=== PATIENT | male | born 1980 | race African-American/Black ===

== ENCOUNTER 2019-03-19 15:34 | Inpatient (IN) | payer OTHER ==
[2019-03-19 16:03] VITALS: BMI 34.4
--- NOTE | 2019-03-19 17:04 | HP ---
COWS - Scale Resting Pulse: 0= [place] 80 or Below Sweatin=Flushed/Facial Moisture Restless Observation: 1= Difficult to Sit Still Pupil Size: 0= Normal to Room Light Bone or Joint Aches: 2= Severe Diffuse Aches Runny Nose/ Eye Tearin= Nasal Congestion GI Upset > 30mins: 2= Nausea/Diarrhea Tremor Observation: 1= Tremor [place], Not Seen Yawning Observation: 1= 1-2x During Session Anxiety or Irritability: 1=Feels Anxious/Irritable Goose Flesh Skin: 0=Smooth Skin COWS Score: 11 CIWA Score - Admission Criteria OASAS Guidelines: Admission for Medically Managed Detox: Requires at least one of the followin. CIWA greater than 12 2. Seizures within the past 24 hours 3. Delirium tremens within the past 24 hours 4. Hallucinations within the past 24 hours 5. Acute intervention needed for co occurring medical disorder 6. Acute intervention needed for co occurring psychiatric disorder 7. Severe withdrawal that cannot be handled at a lower level of care (continued vomiting, continued diarrhea, abnormal vital signs) requiring intravenous medication and/or fluids 8. Admission ROS [facility] - [facility] Chief Complaint: Withdrawal sx Allergies/Adverse Reactions: Allergies Allergy/AdvReac Type Severity Reaction Status Date / Time Milk Containing Products AdvReac Severe Vomiting Verified 03/19/19 17:05 History of Present Illness: This 38 year old male presents for heroin detox for the first time. He denies overdose, he is also requesting for rehab with residential out patient program Exam Limitations: No Limitations - Ebola screening Have you traveled outside of the country in the last 21 days: No (N) Have you had contact with anyone from an Ebola affected area: No Have you been sick,other than usual withdrawal symptoms: No Do you have a fever: No - Review of Systems Constitutional: Chills, Changes in sleep, Unintentional Wgt. Loss EENT: reports: Blurred Vision, Nose Congestion Respiratory: reports: Cough, SOB with Exertion Cardiac: reports: Lightheadedness GI: reports: Diarrhea, Poor Fluid Intake, Abdominal cramping : reports: No Symptoms Reported Musculoskeletal: reports: Muscle Pain, Muscle Weakness Integumentary: reports: Flushing Neuro: reports: Headache, Tremors Endocrine: reports: No Symptoms Reported Hematology: reports: No Symptoms Reported Psychiatric: reports: Anxious, Depressed Other Systems: Reviewed and Negative Patient History - Patient Medical History Hx Anemia: No Hx Asthma: No Hx Chronic Obstructive Pulmonary Disease (COPD): No Hx Cancer: No Hx Cardiac Disorders: No Hx Congestive Heart Failure: No Hx Hypertension: Yes Hx Hypercholesterolemia: Yes Hx Pacemaker: No HX Cerebrovascular Accident: No Hx Seizures: No Hx Dementia: Yes Hx Diabetes: Yes Hx Gastrointestinal Disorders: No Hx Liver Disease: No Hx Genitourinary Disorders: No Hx Sexually Transmitted Disorders: No Hx Renal Disease (ESRD): No Hx Thyroid Disease: No Hx Human Immunodeficiency Virus (HIV): No Hx Hepatitis C: No Hx Depression: Yes Hx Suicide Attempt: No Hx Bipolar Disorder: Yes Hx Schizophrenia: No - Patient Surgical History Past Surgical History: No - PPD History Previous Implant?: Yes Documented Results: Negative w/o proof Implanted On Prior [facility] Admission?: No PPD to be Administered?: Yes - Smoking Cessation Smoking history: Current every day smoker Have you smoked in the past 12 months: Yes Aproximately how many cigarettes per day: 10 Hx Chewing Tobacco Use: No Initiated information on smoking cessation: Yes 'Breaking Loose' booklet given: 03/19/19 - Substances abused Heroin Substance route: Inhalation Frequency: Daily Amount used: 10bags Age of first use: 38 Date of last use: 03/19/19 Crack Substance route: Smoking Frequency: Daily Amount used: $200/day Age of first use: 14 Date of last use: 03/19/19 Admission Physical Exam BHS - Vital Signs Vital Signs: Vital Signs - 24 hr 03/19/19 15:58 Temperature 97.5 F L Pulse Rate 61 Respiratory 16 Rate Blood Pressure 130/80 - Physical General Appearance: Yes: No Apparent Distress HEENTM: Yes: Hearing grossly Normal, Normocephalic, Normal Voice Respiratory: Yes: Chest Non-Tender, Lungs Clear Neck: Yes: No masses,lesions,Nodules, Supple Breast: Yes: Breast Exam Deferred Cardiology: Yes: Regular Rhythm, Regular Rate, S1, S2 Abdominal: Yes: Normal Bowel Sounds, Soft Genitourinary: Yes: Within Normal Limits Back: Yes: Normal Inspection Musculoskeletal: Yes: Muscle Pain, Muscle weakness Extremities: Yes: Tremors, Coldness, Pedal Edema (right) Neurological: Yes: Fully Oriented, Alert, Motor Strength 5/5, Normal Mood/Affect , Normal Response Integumentary: Yes: [place]am[place] Lymphatic: Yes: Within Normal Limits - Diagnostic (1) Opioid withdrawal Current Visit: Yes Status: Acute (2) Cocaine abuse Current Visit: Yes Status: Acute (3) Hypertension Current Visit: Yes Status: Acute Qualifiers: Hypertension type: essential hypertension Qualified Code(s): I10 - Essential (primary) hypertension (4) Diabetes mellitus Current Visit: Yes Status: Acute Qualifiers: Diabetes mellitus type: type 2 Diabetes mellitus complication detail: with polyneuropathy Cleared for Admission [facility] - Detox or Rehab [facility] Level of Care: Medically Managed Detox Regimen/Protocol: Methadone Claeared for Rehab Admission: No Breathalyzer - Breathalyzer Breathalyzer: 0 Urine Drug Screen - Test Device Lot number: [id number] Expiration date: 09/21/20 - Control Is test valid?: Yes - Results Drug screen NEGATIVE: No Urine drug screen results: MIGUEL A-Cocaine, MOP-Opiates Inpatient Rehab Admission - Rehab Decision to Admit Inpatient rehab admission?: No
[2019-03-19] MEDS ORDERED: MENTHOL/PHENOL 1 EACH UD MM PRN (17:10)
[2019-03-19] MEDS ORDERED: MAG HYDROX/AL HYDROX/SIMETH 30 ML UNIT-DOSE CUP PO PRN (17:10)
[2019-03-19] MEDS ORDERED: NALOXONE HCL 0.4 MG/ML VIAL IM PRN (17:10)
[2019-03-19] MEDS ORDERED: ACETAMINOPHEN 325 MG TABLET (FP) PO PRN ×2 (17:10)
[2019-03-19] MEDS ORDERED: BISMUTH SUBSALICYLATE 524 MG/30 ML UD PO PRN (17:10)
[2019-03-19] MEDS ORDERED: MAGNESIUM CITRATE 300 ML BOTTLE PO PRN (17:10)
[2019-03-19] MEDS ORDERED: cloNIDine HCL 0.1 MG TABLET PO PRN (17:10)
[2019-03-19] MEDS ORDERED: METHADONE HCL 10 MG TABLET (FOR DETOX USE ONLY) PO ONE (17:10)
[2019-03-19] MEDS ORDERED: NICOTINE POLACRILEX 2 MG GUM BUC PRN (17:10)
[2019-03-19] MEDS ORDERED: IBUPROFEN 400 MG TABLET (FP) PO PRN (17:10)
[2019-03-19] MEDS ORDERED: MAGNESIUM HYDROX 2400MG/30ML ORAL SUSPENSION 30 ML CUP PO PRN (17:10)
[2019-03-19] MEDS ORDERED: METHOCARBAMOL 500 MG TABLET PO PRN (17:10)
[2019-03-19] MEDS: NICOTINE 14 MG/24 HOURS TOPICAL PATCH TD SCH (18:35)
[2019-03-19] MEDS: MELATONIN 5 MG TABLETS PO PRN (22:19)
[2019-03-19] MEDS: THIAMINE HCL 100 MG TABLET (FP) PO SCH (22:19)
[2019-03-20] MEDS: metFORMIN HCL 500 MG TABLET (FP) PO SCH ×2 (06:36→17:30)
[2019-03-20 09:34] LABS: HEMATOCRIT 40.7 % (35.4-49); HEMOGLOBIN 13.5 GM/dL (11.7-16.9); MCH 31.4 pg (25.7-33.7); MCHC 33.1 g/dl (32.0-35.9); MEAN CELL VOLUME 94.7 fl (80-96); MEAN PLT VOLUME 8.7 fl (7.5-11.1); PLATELET COUNT 184 K/MM3 (134-434); RDW 14.4 % (11.9-15.9); WHITE BLOOD COUNT 7.4 K/mm3 (4.0-10.0)
[2019-03-20] MEDS ORDERED: METHADONE HCL 5 MG TABLET (FOR DETOX USE ONLY) PO ONE (10:00)
[2019-03-20 10:03] LABS: ALBUMIN 3.8 g/dl (3.4-5.0); BILIRUBIN,TOTAL 0.9 mg/dL (0.2-1); BLOOD UREA NITROGEN 19.6 mg/dL (7-18); CREATININE 1.4 mg/dL (0.55-1.3); POTASSIUM 4.2 mmol/L (3.5-5.1); TOT PROT 6.9 g/dl (6.4-8.2)
[2019-03-20] MEDS: NICOTINE 14 MG/24 HOURS TOPICAL PATCH TD SCH (11:02)
[2019-03-20] MEDS: PRENATAL VITAMINS W/ FOLIC ACID TABLET (FP) PO SCH (11:02)
[2019-03-20] MEDS: LISINOPRIL 20 MG TABLET (FP) PO SCH (11:03)
--- NOTE | 2019-03-20 13:27 | PN ---
BHS COWS - Scale Resting Pulse: 0= [place] 80 or Below Sweatin= Chills/Flushing Restless Observation: 0= Sits Still Pupil Size: 0= Normal to Room Light Bone or Joint Aches: 2= Severe Diffuse Aches Runny Nose/ Eye Tearin= Runny Nose/Eyes GI Upset > 30mins: 0= None Tremor Observation of Outstretched Hands: 2= Slight Tremor Visible Yawning Observation: 1= 1-2x During Session Anxiety or Irritability: 1=Feels Anxious/Irritable Goose Flesh Skin: 0=Smooth Skin COWS Score: 9 BHS Progress Note (SOAP) Subjective: sweats shakes interrupted sleep body aches irritable Objective: 03/20/19 13:24 Vital Signs Temperature 95.5 F L 03/20/19 13:08 Pulse Rate 65 03/20/19 13:08 Respiratory Rate 20 03/20/19 13:08 Blood Pressure 148/72 03/20/19 13:08 O2 Sat by Pulse Oximetry (%) Laboratory Tests 03/20/19 03/20/19 03/20/19 06:34 08:00 08:00 WBC 7.4 RBC 4.30 Hgb 13.5 Hct 40.7 MCV 94.7 MCH 31.4 MCHC 33.1 RDW 14.4 Plt Count 184 MPV 8.7 Sodium 136 Potassium 4.2 Chloride 101 Carbon Dioxide 27 Anion Gap 8 BUN 19.6 H Creatinine 1.4 H Est GFR (CKD-EPI)AfAm 72.32 Est GFR (CKD-EPI)NonAf 62.40 POC Glucometer 154 Random Glucose 155 H Calcium 9.0 Total Bilirubin 0.9 AST 15 ALT 27 Alkaline Phosphatase 97 Total Protein 6.9 Albumin 3.8 RPR Titer 03/20/19 08:00 WBC RBC Hgb Hct MCV MCH MCHC RDW Plt Count MPV Sodium Potassium Chloride Carbon Dioxide Anion Gap BUN Creatinine Est GFR (CKD-EPI)AfAm Est GFR (CKD-EPI)NonAf POC Glucometer Random Glucose Calcium Total Bilirubin AST ALT Alkaline Phosphatase Total Protein Albumin RPR Titer Nonreactive aaox3 ambulating no acute distress Assessment: 03/20/19 13:27 withdrawals Plan: continue detox increase fluids
--- NOTE | 2019-03-20 14:21 | EKG ---
Test Reason : Blood Pressure : / mmHG Vent. Rate : 061 BPM Atrial Rate : 061 BPM P-R Int : 200 ms QRS Dur : 086 ms QT Int : 490 ms P-R-T Axes : 056 030 006 degrees QTc Int : 493 ms NORMAL SINUS RHYTHM NONSPECIFIC ST AND T WAVE ABNORMALITY PROLONGED QT ABNORMAL ECG NO PREVIOUS ECGS AVAILABLE Confirmed by Jackson Yo ([id number]) on 03/20/2019 2:21:34 PM Referred By: Confirmed By:Jackson Yo
[2019-03-20] MEDS ORDERED: cloNIDine HCL 0.1 MG TABLET PO ONE (19:00)
[2019-03-20] MEDS: THIAMINE HCL 100 MG TABLET (FP) PO SCH (22:31)
[2019-03-21] MEDS: metFORMIN HCL 500 MG TABLET (FP) PO SCH ×2 (06:54→16:43)
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
[2019-03-21] MEDS: NICOTINE 14 MG/24 HOURS TOPICAL PATCH TD SCH (09:51)
[2019-03-21] MEDS: LISINOPRIL 20 MG TABLET (FP) PO SCH (09:51)
[2019-03-21] MEDS: PRENATAL VITAMINS W/ FOLIC ACID TABLET (FP) PO SCH (09:51)
[2019-03-21] MEDS ORDERED: METHADONE HCL 10 MG TABLET (FOR DETOX USE ONLY) PO ONE (10:00)
--- NOTE | 2019-03-21 12:18 | PN ---
BHS COWS - Scale Resting Pulse: 0= [place] 80 or Below Sweatin= Chills/Flushing Restless Observation: 1= Difficult to Sit Still Pupil Size: 0= Normal to Room Light Bone or Joint Aches: 1= Mild Discomfort Runny Nose/ Eye Tearin= None GI Upset > 30mins: 0= None Tremor Observation of Outstretched Hands: 1= Tremor [place], Not Seen Yawning Observation: 0= None Anxiety or Irritability: 2=Irritable/Anxious Goose Flesh Skin: 0=Smooth Skin COWS Score: 6 BHS Progress Note (SOAP) Subjective: sweats irritable agitation Objective: 03/21/19 12:17 Vital Signs Temperature 97.6 F 03/21/19 09:23 Pulse Rate 66 03/21/19 09:23 Respiratory Rate 17 03/21/19 09:23 Blood Pressure 141/77 03/21/19 09:23 O2 Sat by Pulse Oximetry (%) Laboratory Tests 03/20/19 03/20/19 03/20/19 06:34 08:00 08:00 WBC 7.4 RBC 4.30 Hgb 13.5 Hct 40.7 MCV 94.7 MCH 31.4 MCHC 33.1 RDW 14.4 Plt Count 184 MPV 8.7 Sodium 136 Potassium 4.2 Chloride 101 Carbon Dioxide 27 Anion Gap 8 BUN 19.6 H Creatinine 1.4 H Est GFR (CKD-EPI)AfAm 72.32 Est GFR (CKD-EPI)NonAf 62.40 POC Glucometer 154 Random Glucose 155 H Calcium 9.0 Total Bilirubin 0.9 AST 15 ALT 27 Alkaline Phosphatase 97 Total Protein 6.9 Albumin 3.8 RPR Titer 03/20/19 03/20/19 03/21/19 08:00 16:57 05:57 WBC RBC Hgb Hct MCV MCH MCHC RDW Plt Count MPV Sodium Potassium Chloride Carbon Dioxide Anion Gap BUN Creatinine Est GFR (CKD-EPI)AfAm Est GFR (CKD-EPI)NonAf POC Glucometer 157 138 Random Glucose Calcium Total Bilirubin AST ALT Alkaline Phosphatase Total Protein Albumin RPR Titer Nonreactive aaox3 ambulating no acute distress Assessment: 03/21/19 12:18 withdrawals Plan: continue detox increase fluids d/c in am
[2019-03-21] MEDS: guaiFENesin 200 MG/10 ML 10 ML UNIT-DOSE CUPS PO PRN ×2 (12:49→19:51)
[2019-03-21] MEDS: THIAMINE HCL 100 MG TABLET (FP) PO SCH (21:18)
[2019-03-21] MEDS: MELATONIN 5 MG TABLETS PO PRN (21:18)
[2019-03-22] MEDS: guaiFENesin 200 MG/10 ML 10 ML UNIT-DOSE CUPS PO PRN (02:51)
[2019-03-22] MEDS ORDERED: METHADONE HCL 5 MG TABLET (FOR DETOX USE ONLY) PO ONE (06:00)
[2019-03-22] MEDS: metFORMIN HCL 500 MG TABLET (FP) PO SCH ×2 (06:34→17:36)
--- NOTE | 2019-03-22 09:01 | DS ---
[facility] Detox Discharge Summary Admission Date: 03/19/19 Discharge Date: 03/22/19 - History Present History: Alcohol Dependence, Cocaine Dependence, Opioid Dependence - Physical Exam Results Vital Signs: Vital Signs Temperature 97.9 F 03/22/19 07:31 Pulse Rate 56 L 03/22/19 07:31 Respiratory Rate 18 03/22/19 07:31 Blood Pressure 146/87 03/22/19 07:31 O2 Sat by Pulse Oximetry (%) Pertinent Admission Physical Exam Findings: Vital Signs Temperature 97.9 F 03/22/19 07:31 Pulse Rate 56 L 03/22/19 07:31 Respiratory Rate 18 03/22/19 07:31 Blood Pressure 146/87 03/22/19 07:31 O2 Sat by Pulse Oximetry (%) Laboratory Tests 03/20/19 03/20/19 03/20/19 06:34 08:00 08:00 WBC 7.4 RBC 4.30 Hgb 13.5 Hct 40.7 MCV 94.7 MCH 31.4 MCHC 33.1 RDW 14.4 Plt Count 184 MPV 8.7 Sodium 136 Potassium 4.2 Chloride 101 Carbon Dioxide 27 Anion Gap 8 BUN 19.6 H Creatinine 1.4 H Est GFR (CKD-EPI)AfAm 72.32 Est GFR (CKD-EPI)NonAf 62.40 POC Glucometer 154 Random Glucose 155 H Calcium 9.0 Total Bilirubin 0.9 AST 15 ALT 27 Alkaline Phosphatase 97 Total Protein 6.9 Albumin 3.8 RPR Titer 03/20/19 03/20/19 03/21/19 08:00 16:57 05:57 WBC RBC Hgb Hct MCV MCH MCHC RDW Plt Count MPV Sodium Potassium Chloride Carbon Dioxide Anion Gap BUN Creatinine Est GFR (CKD-EPI)AfAm Est GFR (CKD-EPI)NonAf POC Glucometer 157 138 Random Glucose Calcium Total Bilirubin AST ALT Alkaline Phosphatase Total Protein Albumin RPR Titer Nonreactive 03/21/19 03/22/19 16:38 06:32 WBC RBC Hgb Hct MCV MCH MCHC RDW Plt Count MPV Sodium Potassium Chloride Carbon Dioxide Anion Gap BUN Creatinine Est GFR (CKD-EPI)AfAm Est GFR (CKD-EPI)NonAf POC Glucometer 189 141 Random Glucose Calcium Total Bilirubin AST ALT Alkaline Phosphatase Total Protein Albumin RPR Titer aaox3 ambulating no acute distress - Treatment Hospital Course: Detox Protocol Followed, Detoxed Safely, Responded well, Discharged Condition Good, Rehab Referral Accepted - Medication Discharge Medications: Ambulatory Orders Lisinopril 20 mg PO DAILY 03/19/19 metFORMIN HCL [Metformin HCl] 500 mg PO BID 03/19/19 - Diagnosis (1) Cocaine dependence Current Visit: Yes Status: Chronic Qualifiers: Substance use status: uncomplicated Qualified Code(s): F14.20 - Cocaine dependence, uncomplicated (2) Dyslipidemia Current Visit: Yes Status: Acute (3) Substance-induced sleep disorder Current Visit: Yes Status: Acute (4) Uncomplicated opioid dependence Current Visit: Yes Status: Chronic (5) Diabetes mellitus Current Visit: Yes Status: Chronic Qualifiers: Diabetes mellitus type: type 2 Diabetes mellitus complication detail: with polyneuropathy (6) Hypertension Current Visit: Yes Status: Chronic Qualifiers: Hypertension type: essential hypertension Qualified Code(s): I10 - Essential (primary) hypertension (7) Mood disorder Current Visit: Yes Status: Chronic (8) Nicotine dependence Current Visit: Yes Status: Chronic (9) Bipolar disorder Current Visit: Yes Status: Ruled-out - AMA Did Patient Leave Against Medical Advice: No
[2019-03-22] MEDS: PRENATAL VITAMINS W/ FOLIC ACID TABLET (FP) PO SCH (09:49)
[2019-03-22] MEDS: LISINOPRIL 20 MG TABLET (FP) PO SCH (09:49)
[2019-03-22] MEDS: NICOTINE 14 MG/24 HOURS TOPICAL PATCH TD SCH (09:50)
[2019-03-22 17:30] VITALS: BP 160/93; PULSE 51; TEMP 98.1
== END 2019-03-22 17:47 | disposition other institution (70) | DRG 773 ==
LOC: YASAS 15:34 → Y6N 17:54
PROVIDERS: ADMIT Allergy & Immunology; ATTEND Allergy & Immunology
PROC: HZ2ZZZZ Detoxification Services for Substance Abuse Treatment (ICD-10-PCS; principal; 2019-03-19)
DX: F11.23 Opioid dependence with withdrawal (principal); F14.20 Cocaine dependence, uncomplicated; F10.10 Alcohol abuse, uncomplicated; F17.210 Nicotine dependence, cigarettes, uncomplicated; F19.24 Other psychoactive substance dependence with psychoactive substance-induced mood disorder; F19.282 Other psychoactive substance dependence with psychoactive substance-induced sleep disorder; F39 Unspecified mood [affective] disorder; F31.9 Bipolar disorder, unspecified; I10 Essential (primary) hypertension; E78.5 Hyperlipidemia, unspecified; E11.40 Type 2 diabetes mellitus with diabetic neuropathy, unspecified; Z79.84 Long term (current) use of oral hypoglycemic drugs
CPT/HCPCS: 36415; 80053; 82962; 85027; 86593; 93005; 93010; J0735

== ENCOUNTER 2019-03-22 17:59 | Inpatient (IN) | payer OTHER ==
--- NOTE | 2019-03-22 12:25 | HP ---
JANETH READ Rehab Assess/Revision - Admission History Ad[facility] to Rehab [facility] - Findings Detox History & Physical reviewed: Yes Concur with findings: Yes Inpatient Rehab Admission - Rehab Decision to Admit Inpatient rehab admission?: Yes - Initial Determination Are CD services needed?: Yes Free of communicable disease: Yes Not in need of hospitalization: Yes - Rehab Admission Criteria Previous failed treatment: Yes Poor recovery environment: Yes Comorbidities: Yes Lacks judgement: Yes Patient is meeting Inpatient Rehab admission criteria:: Yes
--- NOTE | 2019-03-22 18:08 | PN ---
BHS Progress Note Note: per nursing BP 160/90 P 52 P : Clonidine 0.1 mg x once ordered . per MR , pt received Lisinopril 20 mg this a.m.
[2019-03-22] MEDS ORDERED: cloNIDine HCL 0.1 MG TABLET PO ONE (18:30)
[2019-03-22] MEDS ORDERED: MAGNESIUM HYDROX 2400MG/30ML ORAL SUSPENSION 30 ML CUP PO PRN (20:46)
[2019-03-22] MEDS ORDERED: P-EPHED 60MG/TRIPROLIDI 2.5MG TABLET PO PRN (20:46)
[2019-03-22] MEDS ORDERED: MAGNESIUM CITRATE 300 ML BOTTLE PO PRN (20:46)
[2019-03-22] MEDS ORDERED: guaiFENesin 200 MG/10 ML 10 ML UNIT-DOSE CUPS PO PRN (20:46)
[2019-03-22] MEDS ORDERED: IBUPROFEN 400 MG TABLET (FP) PO PRN (20:46)
[2019-03-22] MEDS ORDERED: LOPERAMIDE HCL 2 MG CAPSULE PO PRN (20:46)
[2019-03-22] MEDS ORDERED: ACETAMINOPHEN 325 MG TABLET (FP) PO PRN (20:46)
[2019-03-22] MEDS ORDERED: MAG HYDROX/AL HYDROX/SIMETH 30 ML UNIT-DOSE CUP PO PRN (20:46)
[2019-03-22] MEDS ORDERED: MENTHOL/PHENOL 1 EACH UD MM PRN (20:46)
[2019-03-22] MEDS: MELATONIN 5 MG TABLETS PO PRN (22:00)
[2019-03-22] MEDS: THIAMINE HCL 100 MG TABLET (FP) PO SCH (22:00)
--- NOTE | 2019-03-23 09:44 | PN ---
[facility] Progress Note Note: Pt is a 38 y/o male with a hx of CORA admitted to rehab on 03/22/[address] [place] [address] detox. PMHx: HTN, DM; Psych Hx:Depression,Anxiety. pt reports he has no current primary care provider. reports he was at [facility] and was getting care from [place], [place]. Reports he was referred to primary care but was unable to go before leaving that program. Reports dry, itchy feet. Pt stated he had a brief SOB on awakening this morning. but did not report to anyone. Denies any other episode since then, denies fever,chest pain, dizziness or headache, nausea or vomiting. Vital Signs - 24 hr 03/23/19 03:30 Respiratory 18 Rate Vital Signs - 24 hr 03/23/19 03/23/19 03:30 10:00 Pulse Rate 52 L Respiratory 18 18 Rate Blood Pressure 134/72 pulse ox 97% room air @ 9:30 A.M per nurse Pulse ox 97% room air @ 3 p.m Alert o x 3,denies s/hi nad oob ambulating with steady gait cardiac:s1 s2, bradycardic lungs:cta,constance. abdomen:soft,+bs,nt,nd Extremities/skin:extreme dry, scaly feet; no skin breaks EkG on 03/19/19(detox admission): Normal Sinus rhythm, Nonspecific ST and T Wave Abnormality, Prolonged QT Abnormal ECG No previous ECG Available. A/P Hx HTN(on med) DM(on med) Tinea Pedis new rehab pt Hx bradycardia s/p detox from [address] [place] [address] Maintain safety increase po fluids as tolerated HTN/DM Meds reviewed and ordered. Tinactin Cream apply as directed Repeat EKG Resident consult to see pt for further MDM..pt is new to this facility and PMHx unsure. Pt stating his knows everything. D/w patient will need to be connected to primary care for aftercare post Rehab.
[2019-03-23] MEDS: LISINOPRIL 20 MG TABLET (FP) PO SCH (10:18)
[2019-03-23] MEDS: metFORMIN HCL 500 MG TABLET (FP) PO SCH ×2 (10:19→18:04)
[2019-03-23] MEDS: PRENATAL VITAMINS W/ FOLIC ACID TABLET (FP) PO SCH (10:19)
[2019-03-23] MEDS: TOLNAFTATE 1% CREAM 15 GM TUBE TP SCH ×2 (14:28→22:41)
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
--- NOTE | 2019-03-23 14:39 | EKG ---
Test Reason : Blood Pressure : / mmHG Vent. Rate : 050 BPM Atrial Rate : 050 BPM P-R Int : 208 ms QRS Dur : 094 ms QT Int : 456 ms P-R-T Axes : 057 019 001 degrees QTc Int : 415 ms SINUS BRADYCARDIA SEPTAL INFARCT , AGE UNDETERMINED ABNORMAL ECG WHEN COMPARED WITH ECG OF 19-MAR-2019 17:59, SEPTAL INFARCT IS NOW PRESENT QT HAS SHORTENED Confirmed by MARISABEL READ, PADMINI ([id number]) on 03/23/2019 2:39:42 PM Referred By: Too STEWART Confirmed By:PADMINI PETIT MD
--- NOTE | 2019-03-23 16:05 | CONSULT ---
Consultation: REQUESTING PROVIDER: Internal Medicine Service CONSULT REQUEST: We have been asked to medically evaluate this patient for fatigue. HISTORY OF PRESENT ILLNESS: Pt is a 38 y/o M with PMH HTN, DM, HLD, Drug abuse (EtOH, cocaine, heroin on methadone) who is being treated in the rehab unit for drug addiction and abuse. Internal Medicine was asked to see the patient for fatigue. Pt complains of generalized fatigue and feeling depressed. He states that he feels unmotivated and tired. He states that lately he becomes fatigued quickly with exertion even after [address] He admits to palpitations; on further questioning, states that his heart beats fast when he is startled or surprised, but denies palpitations when sitting calmly. Admits to chest wall discomfort worsened by deep inspiration and by pressing on the chest. Sleeps with one pillow. No cough. Denies fever, chills, nausea, vomiting, diarrhea, sick contacts, recent travel. REVIEW OF SYSTEMS: CONSTITUTIONAL: diaphoresis, generalized weakness Absent: fever, chills, , malaise, loss of appetite, weight change HEENT: Absent: rhinorrhea, nasal congestion, throat pain, throat swelling, difficulty swallowing, mouth swelling, ear pain, eye pain, visual changes CARDIOVASCULAR: palpitations, Absent: chest pain, syncope, irregular heart rate, lightheadedness, peripheral edema RESPIRATORY: shortness of breath, dyspnea with exertion Absent: cough, , orthopnea, wheezing, stridor, hemoptysis GASTROINTESTINAL: Absent: abdominal pain, abdominal distension, nausea, vomiting, diarrhea, constipation, melena, hematochezia GENITOURINARY: Absent: dysuria, frequency, urgency, hesitancy, hematuria, flank pain, genital pain MUSCULOSKELETAL: Absent: myalgia, arthralgia, joint swelling, back pain, neck pain SKIN: Absent: rash, itching, pallor HEMATOLOGIC/IMMUNOLOGIC: Absent: easy bleeding, easy bruising, lymphadenopathy, frequent infections ENDOCRINE: Absent: unexplained weight gain, unexplained weight loss, heat intolerance, cold intolerance NEUROLOGIC: Absent: headache, focal weakness or paresthesias, dizziness, unsteady gait, seizure, mental status changes, bladder or bowel incontinence PSYCHIATRIC: Absent: anxiety, depression, suicidal or homicidal ideation, hallucinations. PHYSICAL EXAMINATION Vital Signs - 24 hr 03/23/19 03/23/19 03:30 10:00 Pulse Rate 52 L Respiratory 18 18 Rate Blood Pressure 134/72 Gen: depressed mood, AAOx3, no distress, no sweating HEENT: PERRL, EOMI, moist membranes Neck: trachea central, no jvd Chest: Tender to palpation of L parasternal chest wall Cardio: bradycardia, regular, normal s1s2, no mrg Pulm: clear lungs, no rales ronchi, lung bases with good air entry Abd: soft, nondistended, very mild tenderness to palpation on the left periumbilical area, no guarding Ext: full pulses, no edema Laboratory Results - last 24 hr 03/23/19 09:26 POC Glucometer 213 Active Medications Generic Name Dose Route Start Last Admin Trade Name Freq PRN Reason Stop Dose Admin Acetaminophen 650 mg 03/22/19 20:46 Tylenol - PO Q4H PRN FEVER Al Hydroxide/Mg Hydroxide 30 ml 03/22/19 20:46 Mylanta Oral Suspension - PO Q6H PRN DYSPEPSIA Aripiprazole 2 mg 03/24/19 10:00 Abilify PO DAILY ALBERT Eucalyptus/Menthol/Phenol/Sorbitol 1 each 03/22/19 20:46 Cepastat Lozenge - MM Q4H PRN SORE THROAT Guaifenesin 10 ml 03/22/19 20:46 Robitussin - PO Q6H PRN COUGH Hydroxyzine Pamoate 25 mg 03/23/19 14:50 Vistaril - PO Q4H PRN ANXIETY Ibuprofen 400 mg 03/22/19 20:46 Motrin - PO Q6H PRN Pain Level 4-6 Lisinopril 20 mg 03/23/19 10:00 03/23/19 10:18 Prinivil PO 20 mg DAILY ALBERT Administration Loperamide HCl 4 mg 03/22/19 20:46 Imodium - PO Q6H PRN DIARRHEA Magnesium Citrate 300 ml 03/22/19 20:46 Citroma - PO Q48H PRN CONSTIPATION Magnesium Hydroxide 30 ml 03/22/19 20:46 Milk Of Magnesia - PO DAILY PRN CONSTIPATION Melatonin 5 mg 03/22/19 22:00 03/22/19 22:00 Melatonin PO 5 mg HS PRN Administration INSOMNIA Metformin HCl 500 mg 03/23/19 10:00 03/23/19 10:19 Glucophage - PO 500 mg BID@0700,1630 ALBERT Administration Multivit/Folic Acid/Iron 1 tab 03/23/19 10:00 03/23/19 10:19 Vitamins (Sjr) - PO 1 tab DAILY ALBERT Administration Pseudoephedrine/Triprolidine 1 combo 03/22/19 20:46 Actifed - PO TID PRN NASAL CONGESTION Thiamine HCl 100 mg 03/22/19 22:00 03/22/19 22:00 Vitamin B1 - PO 100 mg HS ALBERT Administration Tolnaftate 1 applic 03/23/19 13:00 03/23/19 14:28 Tinactin 1% Cream - TP 1 applic BID ALBERT Administration ASSESSMENT/PLAN: Pt is a 38 y/o M with PMH HTN, DM, HLD, Substance abuse (EtOH, cocaine, heroin on methadone) who is being treated in the rehab unit for drug addiction and abuse. Internal Medicine was asked to see the patient for fatigue. Fatigue -likely contribution from depressed mood -less likely cardiac in origin: poor relationship to activity, chest discomfort reproducible with deep inspiration and with palpation -Initial EKG with nonspecific ST and T wave changes -repeat EKG stable Substance abuse -c/w methadone and rehab HTN -c/w lisinopril DM -c/w Metformin ?HLD -should have fasting lipids done with PCP Pt advised to establish care with a primary provider once done with Rehab and to ensure good follow up Dispo: We will continue to follow the patient. Thank you for this consultative opportunity. Visit type - Emergency Visit Emergency Visit: No - New Patient This patient is new to me today: Yes Date on this admission: 03/23/19 - Critical Care Critical Care patient: No ATTENDING PHYSICIAN STATEMENT I saw and evaluated the patient. I reviewed the resident's note and discussed the case with the resident. I agree with the resident's findings and plan as documented. SUBJECTIVE: OBJECTIVE: ASSESSMENT AND PLAN:
[2019-03-23] MEDS: ASPIRIN 81 MG CHEWABLE TABLETS PO SCH (18:04)
[2019-03-23] MEDS: hydrOXYzine PAMOATE 25 MG CAPSULE (FP) PO PRN (18:08)
[2019-03-23] MEDS: THIAMINE HCL 100 MG TABLET (FP) PO SCH (22:40)
[2019-03-24] MEDS: metFORMIN HCL 500 MG TABLET (FP) PO SCH ×2 (07:30→18:55)
[2019-03-24] MEDS: ASPIRIN 81 MG CHEWABLE TABLETS PO SCH (09:25)
[2019-03-24] MEDS: PRENATAL VITAMINS W/ FOLIC ACID TABLET (FP) PO SCH (09:25)
[2019-03-24] MEDS: LISINOPRIL 20 MG TABLET (FP) PO SCH (09:25)
[2019-03-24] MEDS: TOLNAFTATE 1% CREAM 15 GM TUBE TP SCH ×2 (09:26→21:51)
--- NOTE | 2019-03-24 09:40 | PN ---
[facility] Progress Note Note: Follow up for a 38 y/o patient who is admitted to rehab on 03/22/19 with a hx of CORA-Heroin and detoxed for the first time on [address] [place] [id number] from 03/18/19 to 03/22/19. Psych hx of Depression aand Anxiety. PMHx of DM and HTN, on meds. Pt has exhibited Bradycardia since from detox admission. Pt unable to say if he has a previous hx of Bradycardia. Today, pt c/o vague on/off chest discomfort on left side wich he reports today as happens sometimes but denied on previous assessments. Reports he works out. Denies dizziness, fever, chills, cough, nausea,vomiting, diarrhea. Reports last BM is today. Vital Signs - 24 hr 03/23/19 03/23/19 03/24/19 21:00 23:05 00:30 Temperature Pulse Rate 53 L 55 L Respiratory 20 20 18 Rate Blood Pressure 150/77 155/78 03/24/19 03/24/19 03/24/19 03:30 07:34 09:29 Temperature 97.5 F L Pulse Rate 45 L 67 Respiratory 18 18 Rate Blood Pressure 154/83 170/89 03/24/19 09:31 Temperature Pulse Rate 64 Respiratory Rate Blood Pressure 174/100 H Laboratory Tests 03/23/19 03/23/19 03/24/19 09:26 16:44 07:29 POC Glucometer 213 135 134 Pulse ox:98% room air Alert o x 3,denies s/h/i nad oob ambulating with steady gait cardiac:s1 s2,jelly, reg rhythm lungs;cta,constance. abdomen;+bs,soft,nt,nd extremities/skin:no edema,no cyanosis,skin intact. Active Medications Generic Name Dose Route Start Last Admin Trade Name Freq PRN Reason Stop Dose Admin Acetaminophen 650 mg 03/22/19 20:46 Tylenol - PO Q4H PRN FEVER Al Hydroxide/Mg Hydroxide 30 ml 03/22/19 20:46 Mylanta Oral Suspension - PO Q6H PRN DYSPEPSIA Aripiprazole 2 mg 03/24/19 10:00 03/24/19 11:00 Abilify PO 2 mg DAILY ALBERT Administration Aspirin 81 mg 03/23/19 17:00 03/24/19 09:25 Asa - PO 81 mg DAILY ALBERT Administration Eucalyptus/Menthol/Phenol/Sorbitol 1 each 03/22/19 20:46 Cepastat Lozenge - MM Q4H PRN SORE THROAT Guaifenesin 10 ml 03/22/19 20:46 Robitussin - PO Q6H PRN COUGH Hydroxyzine Pamoate 25 mg 03/23/19 14:50 03/23/19 18:08 Vistaril - PO 25 mg Q4H PRN Administration ANXIETY Ibuprofen 400 mg 03/22/19 20:46 Motrin - PO Q6H PRN Pain Level 4-6 Lisinopril 20 mg 03/23/19 10:00 03/24/19 09:25 Prinivil PO 20 mg DAILY ALBERT Administration Loperamide HCl 4 mg 03/22/19 20:46 Imodium - PO Q6H PRN DIARRHEA Magnesium Citrate 300 ml 03/22/19 20:46 Citroma - PO Q48H PRN CONSTIPATION Magnesium Hydroxide 30 ml 03/22/19 20:46 Milk Of Magnesia - PO DAILY PRN CONSTIPATION Melatonin 5 mg 03/22/19 22:00 03/22/19 22:00 Melatonin PO 5 mg HS PRN Administration INSOMNIA Metformin HCl 500 mg 03/23/19 10:00 03/24/19 07:30 Glucophage - PO 500 mg BID@0700,1630 ALBERT Administration Multivit/Folic Acid/Iron 1 tab 03/23/19 10:00 03/24/19 09:25 Vitamins (Sjr) - PO 1 tab DAILY ALBERT Administration Pseudoephedrine/Triprolidine 1 combo 03/22/19 20:46 Actifed - PO TID PRN NASAL CONGESTION Thiamine HCl 100 mg 03/22/19 22:00 03/23/19 22:40 Vitamin B1 - PO 100 mg HS ALBERT Administration Tolnaftate 1 applic 03/23/19 13:00 03/24/19 09:26 Tinactin 1% Cream - TP Not Given BID ALBERT A/P CORA-Heroin New pt to Rehab S/P Detox Elevated BP Nonspecific Chest Discomfort abnormal ECG/Bradycardia MDM:pt was consulted yesterday by Resident Dr. Cesar Parkinson. D/w Dr. Alvarado this morning for pt to to be further evaluated at [facility] for clearance before continuing with rehab treatment. After medically cleared, pt may return to continue rehab treatment. Report given to Dr. Stevens.
[2019-03-24] MEDS: ARIPiprazole 2 MG TABLET PO SCH (11:00)
--- NOTE | 2019-03-24 12:48 | EKG ---
Test Reason : Blood Pressure : / mmHG Vent. Rate : 043 BPM Atrial Rate : 043 BPM P-R Int : 212 ms QRS Dur : 098 ms QT Int : 462 ms P-R-T Axes : 057 019 005 degrees QTc Int : 390 ms MARKED SINUS BRADYCARDIA WITH 1ST DEGREE A-V BLOCK ABNORMAL ECG WHEN COMPARED WITH ECG OF 23-MAR-2019 13:58, NO SIGNIFICANT CHANGE WAS FOUND Confirmed by WILFRIDO TOVAR MD ([id number]) on 03/24/2019 12:48:11 PM Referred By: Tam HAMM Confirmed By:WILFRIDO TOVAR MD
--- NOTE | 2019-03-24 18:30 | PN ---
[facility] Progress Note Note: pt returned from ER , denies c/o at this time . hospital d/c reviewed . 03/24/19 15:58 Pt presents to the ED after sent in from [facility] for bradycardia and hypertension. Asymptomatic. EKG shows sinus jelly and is otherwisen normal. Labs are within normal limits. Will discharge home with instructions to return to the ED for worsening symptoms. Vital Signs - 24 hr 03/23/19 03/23/19 03/24/19 21:00 23:05 00:30 Temperature Pulse Rate 53 L 55 L Respiratory 20 20 18 Rate Blood Pressure 150/77 155/78 03/24/19 03/24/19 03/24/19 03:30 07:34 09:29 Temperature 97.5 F L Pulse Rate 45 L 67 Respiratory 18 18 Rate Blood Pressure 154/83 170/89 03/24/19 03/24/19 03/24/19 09:31 10:00 11:25 Temperature 98.1 F Pulse Rate 64 67 53 L Respiratory 18 Rate Blood Pressure 174/100 H 170/89 144/72
[2019-03-24] MEDS ORDERED: LISINOPRIL 20 MG TABLET (FP) PO ONE (19:13)
[2019-03-24] MEDS: THIAMINE HCL 100 MG TABLET (FP) PO SCH (21:50)
[2019-03-24] MEDS: MELATONIN 5 MG TABLETS PO PRN (21:51)
[2019-03-25] MEDS: metFORMIN HCL 500 MG TABLET (FP) PO SCH (06:56)
[2019-03-25 07:14] VITALS: BP 152/85; PULSE 46; TEMP 97.9
[2019-03-25] MEDS: LISINOPRIL 20 MG TABLET (FP) PO SCH (10:43)
[2019-03-25] MEDS: PRENATAL VITAMINS W/ FOLIC ACID TABLET (FP) PO SCH (10:43)
[2019-03-25] MEDS: ASPIRIN 81 MG CHEWABLE TABLETS PO SCH (10:43)
[2019-03-25] MEDS: hydrOXYzine PAMOATE 25 MG CAPSULE (FP) PO PRN (10:44)
[2019-03-25] MEDS: TOLNAFTATE 1% CREAM 15 GM TUBE TP SCH (10:44)
[2019-03-25] MEDS: ARIPiprazole 2 MG TABLET PO SCH (10:45)
--- NOTE | 2019-03-25 11:51 | DS ---
[facility] Rehab Discharge Summary - [facility] Rehab Discharge Summary Admission Date: 03/22/19 Discharge Date: 03/25/19 - Discharge Physical Exam Vital Signs: Vital Signs Temperature 97.9 F 03/25/19 07:13 Pulse Rate 46 L 03/25/19 07:13 Respiratory Rate 18 03/25/19 07:13 Blood Pressure 152/85 03/25/19 07:13 O2 Sat by Pulse Oximetry (%) - Medication Discharge Medications: Ambulatory Orders Lisinopril 20 mg PO DAILY 03/19/19 metFORMIN HCL [Metformin HCl] 500 mg PO BID 03/19/19 - Discharge Instructions Diet, activity, other medical instructions: Diet: no added sodium Activity: as tolerated Other medical instructions: followup with your primary care provider within 1- 3 days . Go to the nearest emergency room or call 911 for any symptoms . - AMA Did Patient Leave Against Medical Advice: Yes Additional Comments: pt reports he wants to leave because his son is in the hospital . Vital Signs - 24 hr 03/24/19 03/24/19 03/24/19 19:08 19:09 22:12 Temperature 97.8 F Pulse Rate 45 L 48 L 48 L Respiratory 20 Rate Blood Pressure 172/106 H 171/89 H 170/85 03/24/19 03/25/19 03/25/19 22:14 00:30 03:30 Temperature Pulse Rate 52 L Respiratory 20 18 Rate Blood Pressure 132/78 03/25/19 07:13 Temperature 97.9 F Pulse Rate 46 L Respiratory 18 Rate Blood Pressure 152/85 Reports he is planning to see PCP on Wednesday . D/w pt at length risks of leaving AMA , and importance of proper BP control. Verbalizes understanding and agreeable to f/up w/ PCP and go to ER for any symptoms of CERRATO / chest pain .
[2019-03-25] MEDS ORDERED: PNEUMOCOCCAL 23 VACCINE 0.5 ML VIAL IM ONE (12:00)
[2019-03-25] MEDS ORDERED: PNEUMOC 13-VAL CONJ-DIP CRM/PF 0.5 ML DISP.SYRIN IM ONE (12:00)
== END 2019-03-25 11:54 | disposition left against medical advice (07) | DRG 770 ==
LOC: YASAS 17:59 → Y5N 18:00
PROVIDERS: ADMIT Allergy & Immunology; ATTEND Allergy & Immunology
PROC: HZ42ZZZ Group Counseling for Substance Abuse Treatment, Cognitive-Behavioral (ICD-10-PCS; principal; 2019-03-22)
DX: F11.23 Opioid dependence with withdrawal (principal); F14.20 Cocaine dependence, uncomplicated; F17.210 Nicotine dependence, cigarettes, uncomplicated; F39 Unspecified mood [affective] disorder; I10 Essential (primary) hypertension; E11.9 Type 2 diabetes mellitus without complications; R07.89 Other chest pain; R03.0 Elevated blood-pressure reading, without diagnosis of hypertension; R00.1 Bradycardia, unspecified; R94.31 Abnormal electrocardiogram [ECG] [EKG]; E78.5 Hyperlipidemia, unspecified; B35.3 Tinea pedis; Z91.011 Allergy to milk products; Z79.84 Long term (current) use of oral hypoglycemic drugs
CPT/HCPCS: 82962; 93005; 93010; J0735

== ENCOUNTER 2019-03-24 12:23 | Emergency (ER) | payer OTHER ==
--- NOTE | 2019-03-24 13:16 | PDOC ---
History of Present Illness - General Chief Complaint: Revisit, Lab Variance Stated Complaint: LOW BLOOD PRESSURE Time Seen by Provider: 03/24/19 13:16 - History of Present Illness Initial Comments: Harrison Christianson is a 38yo man with a PMH of HTN, DM, HLD, Drug abuse (EtOH, cocaine, heroin on methadone) who presents from detox/rehab due to concerns for chest pain. Per report, he was complaining of chest discomfort intermittently throughout the day today. He has also been persistently bradycardic in the high 40's to low 50's since his arrival at detox. Mr Christianson denies that he had chest discomfort. He states that he was rubbing his chest for "no reason." He additionally denies any difficulty breathing, new headaches, vision changes, confusion, focal weakness, numbness/tingling, changes in urination, falls, or dizziness. He says that he feels at his baseline and would like to go back to detox. Past History - Past Medical History Allergies/Adverse Reactions: Allergies Allergy/AdvReac Type Severity Reaction Status Date / Time No Known Drug Allergies Allergy Verified 03/24/19 13:26 Milk Containing Products AdvReac Severe Vomiting Verified 03/24/19 13:26 Home Medications: Ambulatory Orders Lisinopril 20 mg PO DAILY 03/19/19 metFORMIN HCL [Metformin HCl] 500 mg PO BID 03/19/19 Anemia: No Asthma: No Cancer: No Cardiac Disorders: Yes CVA: No COPD: No CHF: No Dementia: Yes Diabetes: Yes GI Disorders: No Disorders: No HTN: Yes Hypercholesterolemia: Yes Kidney Stones: No Liver Disease: No Seizures: No Thyroid Disease: No - Psycho Social/Smoking Cessation Hx Smoking History: Current every day smoker Have you smoked in the past 12 months: Yes Number of Cigarettes Smoked Daily: 10 'Breaking Loose' booklet given: 03/19/19 Hx Substance Use Treatment: Yes Review of Systems - Review of Systems Comments:: General: No fevers, no chills, no weight or appetite change, no malaise HEENT: No changes in vision, no changes in hearing, no congestion, no sore throat CV: No chest pain, no palpitations, no LE edema Pulm: No SOB, no cough, no wheezing GI: No nausea or vomiting, no change in bowel habits, no melena : No frequency, no urgency, no dysuria Musc: No back pain, no joint swelling, no recent injury Skin: No rash, no lesions, no erythema Endo: No excessive thirst, no heat/cold intolerance Heme: No unusual bruising or bleeding, no swollen glands Neuro: No syncope, no numbness/tingling, no focal weakness Vasc: No claudication Psych: No recent change in mood, no SI or HI. +h/o substance abuse *Physical Exam - Physical Exam General: Comfortable, no acute distress HEENT: Atraumatic, PERRL, EOMI, MMM, voice normal, normal neck ROM Cards: bradycardic, regular, no murmur appreciated Pulm: Comfortable on room air, clear to auscultation bilaterally Abd: Soft, nontender, nondistended Ext: Atraumatic. No LE edema. ROM intact. WWP Skin: Normal color, no rashes or lesions Neuro: A&Ox3, CN grossly intact, normal speech, motor/sensory grossly intact and symmetric. No focal deficits Psych: Mood appropriate to situation ED Treatment Course - LABORATORY CBC & Chemistry Diagram: 03/24/19 14:23 03/24/19 14:23 Medical Decision Making - Medical Decision Making 03/24/19 13:16 Harrison Christianson is a 38yo man with a PMH of HTN, DM, HLD, Drug abuse (EtOH, cocaine, heroin on methadone) who presents from detox/rehab due to concerns for chest pain. - Pt asymptomatic, denying chest pain - Per reports, was c/o left chest discomfort earlier. Will evaluate for ACS - No concerns regarding bradycardia; appears to be pt's baseline. Mentating normally, observed ambulating without diffuclty, neuro exam intact 03/24/19 15:27 - Labs reviewed. No concerning abnormlaities - Trop negative - EKG w/ sinus bradycardia, 1st degree block with NC 218, intervals otherwise normal, normal axis, no concerning t-wave or ST changes. - Plan to discharge back to detox Discussed with Dr Rodney Mcneal PGY2 Discharge - Discharge Information Problems reviewed: Yes Clinical Impression/Diagnosis: Bradycardia Condition: Stable Disposition: HOME - Admission No - Follow up/Referral Referrals: [facility] Internal Med at [place] [Provider Group] Bear Bang MD [Staff Physician] - - Patient Discharge Instructions Patient Printed Discharge Instructions: DI for Heart Block Additional Instructions: Discharge Instructions: You were seen in the emergency department for evaluation of possible chest discomfort. Your blood tests and EKG did not show any concerning changes, though you do have a slow heart beat due to a heart block. This is an abnormality in the way electricity conducts through your heart, and you will need to follow up with a learning and development specialist. Please proceed back to rehab for help with your drug and alcohol problems. Continue to take all of your regular medications as prescribed. You have been given contact information for a learning and development specialist, Dr Bang. Please make an appointment for within the next 1-2 weeks for evaluation. Seek immediate care for any chest pain, difficulty breathing, palpitations, dizziness/lightheadedness, fainting, or any other medical emergency. - Post Discharge Activity
--- NOTE | 2019-03-24 13:16 | PDOC ---
Attending Attestation - Resident Resident Name: Therese Mcneal - HPI HPI: 03/24/19 15:52 Pt presents to the ED after sent in from [facility] for elevated BP and bradycardia. Patient reports that he has no symptoms. - Physicial Exam PE: 03/24/19 15:56 Pt is alert and oriented and in no acute distress. Heart: bradycardic, regular rate and rhythm no murmur. Abdomen: soft, non tender, non distended without guarding or rebound. Pulm: CTA b/l - Medical Decision Making 03/24/19 15:58 Pt presents to the ED after sent in from [facility] for bradycardia and hypertension. Asymptomatic. EKG shows sinus jelly and is otherwisen normal. LAbs are within normal limits. Will discharge home with instructions to return to the ED for worsening symptoms.
[2019-03-24 13:26] VITALS: BMI 34.8
[2019-03-24 14:41] LABS: BASO % 1.2 % (0-2.0); EOS % 1.8 % (0-4.5); HEMATOCRIT 39.5 % (35.4-49); HEMOGLOBIN 13.3 GM/dL (11.7-16.9); LYMPH % 26.7 % (8-40); MCH 31.9 pg (25.7-33.7); MCHC 33.5 g/dl (32.0-35.9); MEAN PLT VOLUME 8.3 fl (7.5-11.1); MONO % 9.2 % (3.8-10.2); NEUT % 61.1 % (42.8-82.8); PLATELET COUNT 172 K/MM3 (134-434); RBC 4.16 M/mm3 (4.00-5.60); WHITE BLOOD COUNT 6.7 K/mm3 (4.0-10.0)
--- NOTE | 2019-03-24 14:50 | EKG ---
Test Reason : Blood Pressure : / mmHG Vent. Rate : 046 BPM Atrial Rate : 046 BPM P-R Int : 218 ms QRS Dur : 096 ms QT Int : 478 ms P-R-T Axes : 049 007 -25 degrees QTc Int : 418 ms SINUS BRADYCARDIA WITH SINUS ARRHYTHMIA WITH 1ST DEGREE A-V BLOCK CANNOT RULE OUT SEPTAL INFARCT , AGE UNDETERMINED WHEN COMPARED WITH ECG OF 23-MAR-2019 16:15, NO SIGNIFICANT CHANGE WAS FOUND Confirmed by WILFRIDO TOVAR MD ([id number]) on 03/24/2019 2:50:22 PM Referred By: Confirmed By:WILFRIDO TOVAR MD
[2019-03-24 15:14] LABS: ALBUMIN 3.4 g/dl (3.4-5.0); BILIRUBIN,TOTAL 0.3 mg/dL (0.2-1); BLOOD UREA NITROGEN 15.1 mg/dL (7-18); CREATININE 1.4 mg/dL (0.55-1.3); POTASSIUM 4.2 mmol/L (3.5-5.1); TOT PROT 6.7 g/dl (6.4-8.2)
[2019-03-24 17:59] VITALS: BP 135/67; PULSE 65; TEMP 98
== END 2019-03-24 18:00 | disposition home or self-care (01) ==
LOC: JER 12:23
DX: R00.1 Bradycardia, unspecified (principal); I10 Essential (primary) hypertension; E11.9 Type 2 diabetes mellitus without complications; E78.5 Hyperlipidemia, unspecified; F10.10 Alcohol abuse, uncomplicated; Z91.011 Allergy to milk products
CPT/HCPCS: 36415; 80053; 82550; 84484; 85025; 93005; 93010; 99282-25

== ENCOUNTER 2020-02-17 14:26 | Inpatient (IN) | payer OTHER ==
[2020-02-17 16:05] VITALS: BMI 36.3
[2020-02-17] MEDS ORDERED: MAGNESIUM CITRATE 300 ML BOTTLE PO PRN (17:51)
[2020-02-17] MEDS ORDERED: METHOCARBAMOL 500 MG TABLET PO PRN (17:51)
[2020-02-17] MEDS ORDERED: MENTHOL/PHENOL 1 EACH UD MM PRN (17:51)
[2020-02-17] MEDS ORDERED: chlordiazePOXIDE HCL 25 MG CAPSULE PO ONE (17:51)
[2020-02-17] MEDS ORDERED: MAG HYDROX/AL HYDROX/SIMETH 30 ML UNIT-DOSE CUP PO PRN (17:51)
[2020-02-17] MEDS ORDERED: BISMUTH SUBSALICYLATE 524 MG/30 ML UD PO PRN (17:51)
[2020-02-17] MEDS ORDERED: ONDANSETRON *ODT* 4 MG TABLET SL PRN (17:51)
[2020-02-17] MEDS ORDERED: ACETAMINOPHEN 325 MG TABLET (FP) PO PRN ×2 (17:51)
[2020-02-17] MEDS ORDERED: NICOTINE POLACRILEX 2 MG GUM BUC PRN (17:51)
[2020-02-17] MEDS ORDERED: MAGNESIUM HYDROX 2400MG/30ML ORAL SUSPENSION 30 ML CUP PO PRN (17:51)
[2020-02-17] MEDS ORDERED: chlordiazePOXIDE HCL 25 MG CAPSULE PO PRN (17:51)
[2020-02-17] MEDS ORDERED: IBUPROFEN 400 MG TABLET (FP) PO PRN (17:51)
[2020-02-17] MEDS ORDERED: hydrOXYzine PAMOATE 25 MG CAPSULE (FP) PO PRN (17:51)
[2020-02-17] MEDS: MELATONIN 5 MG TABLETS PO SCH (23:06)
[2020-02-17] MEDS: chlordiazePOXIDE HCL 25 MG CAPSULE PO SCH (23:06)
[2020-02-17] MEDS: THIAMINE HCL 100 MG TABLET (FP) PO SCH (23:06)
[2020-02-18] MEDS: chlordiazePOXIDE HCL 25 MG CAPSULE PO SCH ×4 (05:48→22:14)
[2020-02-18] MEDS: metFORMIN HCL 500 MG TABLET (FP) PO SCH ×2 (07:27→16:58)
[2020-02-18] MEDS: PRENATAL VITAMINS W/ FOLIC ACID TABLET (FP) PO SCH (10:03)
[2020-02-18 10:39] LABS: HEMATOCRIT 39.3 % (35.4-49); HEMOGLOBIN 13.2 GM/dL (11.7-16.9); MCH 32.7 pg (25.7-33.7); MCHC 33.7 g/dl (32.0-35.9); MEAN CELL VOLUME 97.1 fl (80-96); MEAN PLT VOLUME 8.6 fl (7.5-11.1); PLATELET COUNT 184 K/MM3 (134-434); RBC 4.04 M/mm3 (4.00-5.60); RDW 13.4 % (11.9-15.9); WHITE BLOOD COUNT 5.9 K/mm3 (4.0-10.0)
[2020-02-18 10:44] LABS: ALBUMIN 3.7 g/dl (3.4-5.0); BLOOD UREA NITROGEN 18.8 mg/dL (7-18); CALCIUM 8.1 mg/dL (8.5-10.1)
[2020-02-18 10:49] LABS: CREATININE 1.6 mg/dL (0.55-1.3)
[2020-02-18 10:50] LABS: BILIRUBIN,TOTAL 0.4 mg/dL (0.2-1); TOT PROT 6.9 g/dl (6.4-8.2)
[2020-02-18] MEDS: THIAMINE HCL 100 MG TABLET (FP) PO SCH (22:14)
[2020-02-18] MEDS: MELATONIN 5 MG TABLETS PO SCH (22:14)
[2020-02-19] MEDS: chlordiazePOXIDE HCL 25 MG CAPSULE PO SCH ×4 (06:03→22:15)
[2020-02-19] MEDS: metFORMIN HCL 500 MG TABLET (FP) PO SCH ×2 (06:03→17:42)
[2020-02-19] MEDS: PRENATAL VITAMINS W/ FOLIC ACID TABLET (FP) PO SCH (10:19)
[2020-02-19] MEDS: THIAMINE HCL 100 MG TABLET (FP) PO SCH (22:15)
[2020-02-19] MEDS: MELATONIN 5 MG TABLETS PO SCH (22:15)
[2020-02-20] MEDS ORDERED: chlordiazePOXIDE HCL 10 MG CAPSULE PO PRN
[2020-02-20] MEDS: chlordiazePOXIDE HCL 10 MG CAPSULE PO SCH ×4 (06:51→22:28)
[2020-02-20] MEDS: metFORMIN HCL 500 MG TABLET (FP) PO SCH ×2 (07:13→17:41)
[2020-02-20] MEDS: PRENATAL VITAMINS W/ FOLIC ACID TABLET (FP) PO SCH (10:13)
[2020-02-20] MEDS: INSULIN SLIDING SCALE (NOVOLOG) 1 VIAL SQ SCH (17:44)
[2020-02-20] MEDS: THIAMINE HCL 100 MG TABLET (FP) PO SCH (22:26)
[2020-02-20] MEDS: MELATONIN 5 MG TABLETS PO SCH (22:26)
[2020-02-21] MEDS ORDERED: chlordiazePOXIDE HCL 10 MG CAPSULE PO SCH (05:00)
[2020-02-21] MEDS: metFORMIN HCL 500 MG TABLET (FP) PO SCH (06:13)
[2020-02-21 06:22] VITALS: BP 133/82; PULSE 45; TEMP 97.3
[2020-02-21] MEDS: INSULIN SLIDING SCALE (NOVOLOG) 1 VIAL SQ SCH (06:35)
[2020-02-22] MEDS ORDERED: chlordiazePOXIDE HCL 10 MG CAPSULE PO ONE (05:00)
== END 2020-02-21 08:57 | disposition home or self-care (01) | DRG 774 ==
LOC: YASAS 14:26 → Y3N 17:50
PROVIDERS: ADMIT Allergy & Immunology; ATTEND Allergy & Immunology
PROC: HZ2ZZZZ Detoxification Services for Substance Abuse Treatment (ICD-10-PCS; principal; 2020-02-17)
DX: F10.230 Alcohol dependence with withdrawal, uncomplicated (principal); F14.20 Cocaine dependence, uncomplicated; F17.213 Nicotine dependence, cigarettes, with withdrawal; F19.24 Other psychoactive substance dependence with psychoactive substance-induced mood disorder; F19.282 Other psychoactive substance dependence with psychoactive substance-induced sleep disorder; F39 Unspecified mood [affective] disorder; I10 Essential (primary) hypertension; E11.65 Type 2 diabetes mellitus with hyperglycemia; E11.42 Type 2 diabetes mellitus with diabetic polyneuropathy; Z79.84 Long term (current) use of oral hypoglycemic drugs; E78.5 Hyperlipidemia, unspecified; Z91.011 Allergy to milk products
CPT/HCPCS: 36415; 80053; 82962; 85027; 86780; C9803; U0003